=== PATIENT | female | born 1995 | race Caucasian/White ===

== ENCOUNTER 2019-12-06 06:10 | Day surgery (SDC) | payer OTHER, SELFPAY ==
[2019-12-06 06:14] VITALS: PULSE 65; RESP 16; TEMP 36.5; O2SAT 99
[2019-12-06] MEDS: Lactated Ringers 1,000 ML 80 ML IV (06:46)
--- NOTE | 2019-12-06 07:16 | HPE_ITS ---
Date of service: 12/06/19 Time of Service: 07:16 Assessment and Plan Assessment and plan (1) Hemorrhoids: Status: Acute Assessment and plan: Plan for anal exam under anesthesia and possible internal hemorrhoid banding. The risks of pain, bleeding and recurrence discussed. The goal is control of bleeding. Any external hemorrhoidal tags will not be treated with this technique. History of Present Illness Narrative: 24 y/o female presents with complaints of hemorrhoids which have been present for several years. She has been using stool softners, topical creams as well as suppositories without any improvement in her symptoms. She reports that she has been having regular rectal bleeding after BMs and at times she has blood dripping into the toilet from her rectum. No significant pain with BM. She is physically active and has been hiking and weight lifting. [facility]LY [facility] Medical History Anxiety Hemorrhoids Surgical History [place] teeth extracted Family History Mother Substance abuse Depression Father Substance abuse Depression Sister Depression Social History Smoking/Tobacco Use Status: Current-Occasional Tobacco Type: cigarettes Alcohol Intake: current Alcohol Intake frequency: holidays/special occasions only Drug use: Occasionally Substance use type: marijuana Do you feel safe at home: Yes Do you feel safe in your relationship?: Yes Meds Home Medications and Allergies Home Medications Medication Instructions Recorded Confirmed Type ibuprofen 200 mg PO PRN #3 02/14/14 12/06/19 History CBD PO QDAY 11/01/19 11/04/19 History docusate sodium [Colace] 100 mg PO DAILY PRN 12/06/19 12/06/19 History Allergies Allergy/AdvReac Type Severity Reaction Status Date / Time No Known Drug Allergies Allergy Verified 12/06/19 06:15 Exam Narrative Exam Narrative: Alert Lungs CTA Heart RRR Results Last Vital Signs Temp 97.7 F 12/06/19 06:14 Pulse 65 12/06/19 06:14 Resp 16 12/06/19 06:14 Pulse Ox 99 12/06/19 06:14 COVID-19 Screening Have you,or household,traveled outside [place] in last 14 days?: No Had IN PERSON contact w/suspected or confirmed C-19 person: No
--- NOTE | 2019-12-06 07:27 | W.PM.DSUDISC ---
Discharge Plan Disposition Patient Disposition: HOME Condition: Good Discharge Details Reason For Visit: Internal hemorrhoid banding Attending Provider: Kym Buckner Primary Care Provider: Tracy Garza Home Meds and New Rx's Prescriptions: Continued CBD capsule PO QDAY RF: 0 ibuprofen 200 MG tablet 200 mg PO PRN Qty: 3 RF: 0 docusate sodium [Colace] 100 mg Capsule 100 mg PO DAILY PRNRF: 0 Discharge Instructions Additional Instructions: Bands were applied to three areas of internal hemorrhoids. Call for any concerns including fever, increased pain or significant bleeding. A small amount of bleeding is expected when the bands slough off. Do not lift more than 15 pounds for one week. Walking and hiking are fine. May use Tylenol alternating with ibuprofen for pain control. The maximum dose for Tylenol is 4000 mg/day. May use ibuprofen 800 mg every 8 hours as needed. Sitz baths can also help with discomfort. If concerned about constipation, you may use a stool softener or milk of magnesia. Banding can be repeated if needed. If you are still having bleeding in 6 weeks, contact the office to discuss. Activity:: Do not lift more than 15# for one week Diet:: As Tolerated Discharge Orders Discharge Orders: Discharge Order (Routine); Ordered 12/06/19 Ordered By: Kym Buckner DS: Diagnosis Discharge Diagnosis (1) Internal bleeding hemorrhoids: Status: Acute
--- NOTE | 2019-12-06 07:31 | W.PM.OP ---
Date of service: 12/06/19 Time of Service: 07:57 Operative Note Operative Note DATE OF PROCEDURE: 12/06/19 PRE-OP DIAGNOSIS: Bleeding internal hemorrhoids POST-OP DIAGNOSIS: same PROCEDURE: Anal exam under anesthesia, internal hemorrhoid banding times three SURGEON: Kym Buckner ANESTHESIA: MAC Indications: This 24 year old woman complains of worsening rectal bleeding during bowel movements. The blood can drip into the toilet. This has not responded to medical management. Procedure Description: The patient was placed into the left lateral decubitus position. Digital rectal exam revealed minimal external hemorrhoids. No masses. Anoscopy showed Grade I or II internal hemorrhoids. No anal fissures were noted. Bands were applied to the classic hemorrhoid bundles in the right anterior/posterior and left lateral locations. There was minimal bleeding. She tolerated the procedure well and was stable to recovery.
[2019-12-06 08:25] VITALS: BP 118/76; PULSE 59; RESP 18; TEMP 36.1; O2SAT 100
[2019-12-06] MEDS: Normal Saline Flush 10 ML SYR IV (08:38)
[2019-12-06] MEDS: Ketorolac 30 MG/ML VIAL IVP (08:38)
[2019-12-06 08:53] VITALS: BP 114/75; PULSE 56; RESP 18; TEMP 36.7; O2SAT 100
== END 2019-12-06 09:00 | disposition home or self-care (01) ==
PROVIDERS: PCP Internal Medicine; Visit Provider Surgery
PROC: (CPT 46221; principal; 2019-12-06 07:30)
PROC: (CPT 46221; 2019-12-06 07:30)
DX: K64.8 Other hemorrhoids (principal); F41.9 Anxiety disorder, unspecified
CPT/HCPCS: 46221; NC; J1885; J2001